=== PATIENT | female | born 1945 | race Caucasian/White ===

== ENCOUNTER 2021-07-10 19:27 | Emergency (ER) | payer MEDICARE ==
[~2021-07-10] VITALS: Ht 162.6 cm; Wt 59.0 kg
[2021-07-10] MEDS ORDERED: CREON DR 36,001 EACH PO (19:41)
[2021-07-10] MEDS ORDERED: TESSALON PERLE100 MG PO (20:35)
[2021-07-10 21:01] LABS: INFLUENZA A ANTIGEN Negative (Negative); INFLUENZA B ANTIGEN Negative (Negative)
[2021-07-10 21:57] VITALS: BP 155/67
== END 2021-07-10 21:57 | disposition home or self-care (01) ==
LOC: M.ERS 19:27
PROVIDERS: Nurse Practitioner Psychiatric/Mental Health
DX: U07.1 COVID-19 (principal); R05 Cough; R09.81 Nasal congestion; Z85.038 Personal history of other malignant neoplasm of large intestine; Z79.899 Other long term (current) drug therapy